=== PATIENT | male | born 1995 | race Caucasian/White ===

== ENCOUNTER 2016-07-16 20:12 | Emergency (ER) | payer BC ==
[~2016-07-16] VITALS: Ht 177.8 cm; Wt 116.0 kg
[~2016-07-16 20:12] MED LIST: CEPHALEXIN500 MG OR; DOXYCYCL HYC100 MG PO; IBUPROFEN600 MG PO; KEFLEX500 MG PO; LORTAB 7.5 PO; NO
[2016-07-16] MEDS ORDERED: KEFLEX500 MG PO (20:53)
[2016-07-16 20:59] VITALS: BP 144/93
== END 2016-07-16 20:59 | disposition home or self-care (01) | DRG 914 ==
LOC: ED 20:12
PROC: 0HCGXZZ Extirpation of Matter from Left Hand Skin, External Approach (ICD-10-PCS; principal; 2016-07-16)
DX: S61.041A Puncture wound with foreign body of right thumb without damage to nail, initial encounter (principal); W22.8XXA Striking against or struck by other objects, initial encounter; Y93.89 Activity, other specified; Y92.9 Unspecified place or not applicable

== ENCOUNTER 2019-01-06 09:59 | Emergency (ER) | payer BC ==
[~2019-01-06] VITALS: Ht 177.8 cm; Wt 117.8 kg
[2019-01-06 11:07] LABS: IMMATURE GRANULOCYTES 0.7 % (0.0-5.0); MEAN CORPUSCULAR HGB 31.2 pG CALC (26.0-32.0); MEAN CORPUSCULAR HGB CONC 34.4 g/L CALC (32.0-36.0); NEUT# 18.42 thou/uL (1.82-7.42); RED BLOOD COUNT 4.29 mill/uL (4.70-6.10); RED CELL DISTRI WIDTH 12.3 % (11.5-15.5)
[2019-01-06 11:13] LABS: HEMATOCRIT 38.9 % (39.0-50.0); HEMOGLOBIN 13.4 g/dl (14.0-18.0); MEAN CELL VOLUME 90.7 fL CALC (80.0-100.0)
[2019-01-06 11:16] LABS: ALBUMIN 4.6 g/dL (3.2-5.0); ALKALINE PHOSPHATASE 88 u/l (38-126); ANION GAP 16 (6-22 (CALC)); BILIRUBIN, TOTAL 1.1 mg/dL (0.0-1.4); BUN 7 mg/dL (9-20); BUN/CREATININE RATIO 8 (12-20 (CALC)); CARBON DIOXIDE 25 mmol/l (22-30); CHLORIDE 102 mmol/l (95-108); CREATININE 0.9 mg/dL (0.7-1.3); GFR > 60 ML/MIN (>=60 (CALC)); GFR FOR AFR.AMER. > 60 ML/MIN (>=60 (CALC)); SGOT/AST 33 u/l (17-59); SODIUM 140 mmol/l (137-146); TOTAL PROTEIN 7.8 g/dL (6.3-8.2)
[2019-01-06 14:04] LABS: URINE BILIRUBIN - DIPSTICK NEGATIVE (NEGATIVE); URINE BLOOD DIPSTICK NEGATIVE (NEGATIVE); URINE COLOR YELLOW; URINE GLUCOSE - DIPSTICK NEGATIVE (NEGATIVE); URINE KETONE TRACE mg/dL (NEGATIVE); URINE LEUK ESTERASE NEGATIVE (NEGATIVE); URINE NITRITE - DIPSTICK NEGATIVE (Negative); URINE PH 6.5 (4.5-8.0); URINE PROTEIN - DIPSTICK NEGATIVE (NEG-TRACE); URINE SPECIFIC GRAVITY <=1.005; URINE UROBILINOGEN - DIPSTICK 0.2 E.U./dL (0.2)
[2019-01-06] MEDS ORDERED: VENTOLIN HFA IN (15:24)
[2019-01-06] MEDS ORDERED: ZITHROMAX250 MG PO ×2 (15:24→17:35)
[2019-01-06 16:47] VITALS: BP 144/61
== END 2019-01-06 16:55 | disposition home or self-care (01) | DRG 195 ==
LOC: ED 09:59
PROVIDERS: Emergency Medicine
DX: J18.9 Pneumonia, unspecified organism (principal)
CPT/HCPCS: J0131; Q9967